=== PATIENT | male | born 1950 | race Caucasian/White ===

== ENCOUNTER 2016-11-09 18:16 | Emergency (ER) | payer MEDICARE, MEDICAID ==
[~2016-11-09] VITALS: Ht 170.2 cm; Wt 81.6 kg
[2016-11-09 18:33] VITALS: BP_SYST 125
[2016-11-09] MEDS ORDERED: PREDNISONE 20 MG TABLET PO ONE (19:45)
[2016-11-09] MEDS ORDERED: MORPHINE SULFATE 10 MG/ML VIAL IM ONE (19:45)
[2016-11-09] MEDS ORDERED: DIPHENHYDRAMINE INJ 50 MG/ML VIAL IM ONE (19:45)
[2016-11-09 20:45] VITALS: BP_SYST 125
== END 2016-11-09 20:45 | disposition home or self-care (01) ==
LOC: SED 18:16
DX: M54.17 Radiculopathy, lumbosacral region (principal); I10 Essential (primary) hypertension; F17.200 Nicotine dependence, unspecified, uncomplicated; J44.9 Chronic obstructive pulmonary disease, unspecified; E78.00 Pure hypercholesterolemia, unspecified; Z86.79 Personal history of other diseases of the circulatory system; Z71.6 Tobacco abuse counseling; Z98.890 Other specified postprocedural states
CPT/HCPCS: 96372; 99284; J1200; J2270; J7512

== ENCOUNTER 2016-12-21 09:31 | Emergency (ER) | payer MEDICARE, MEDICAID ==
[~2016-12-21] VITALS: Ht 157.5 cm; Wt 81.6 kg
[2016-12-21 09:35] VITALS: BP 113/46; PULSE 104; RESP 20; TEMP 98.2; O2SAT 98
--- NOTE | 2016-12-21 09:45 | NUR ---
Pt placed to ER bed 04 and to gown.
[2016-12-21] MEDS ORDERED: PHENAZOPYRIDINE HCL 100 MG TABLET PO ONE (10:30)
[2016-12-21] MEDS ORDERED: LEVOFLOXACIN 750 MG TABLET PO ONE (10:30)
[2016-12-21] MEDS ORDERED: MAGNESIUM CITRATE 300 ML ORAL SOLUTION PO ONE (11:30)
[2016-12-21 11:33] LABS: BILIRUBIN,URINE NEGATIVE (NEGATIVE); BLOOD, URINE 3+ (NEGATIVE); CLARITY/URINE SL CLOUDY (CLEAR); COLOR,URINE YELLOW (YELLOW); GLUCOSE,URINE NEGATIVE (NEGATIVE); KETONES,URINE NEGATIVE (NEGATIVE); LEUKOCYTE ESTERASE ,URINE NEGATIVE (NEGATIVE); NITRITE, URINE NEGATIVE (NEGATIVE); PROTEIN URINE NEGATIVE (NEGATIVE); UROBILINOGEN,URINE 0.2 (0.2-1.0)
[2016-12-21 11:47] LABS: BACTERIA,URINE FEW /HPF (None Seen); RBC,URINE 0-3 /HPF (0-3); WBC,URINE 0-3 /HPF (0-3)
--- NOTE | 2016-12-21 13:25 | NUR ---
Patient given written and verbal discharge instructions and verbalizes understanding. ER MD discussed with patient the results and treatment provided. Patient in stable condition. ID arm band removed. Rx of Cipro, Pyridium given. Patient educated on pain management and to follow up with PMD. Pain Scale 0/10. Opportunity for questions provided and answered. Translation provided by America MCFARLANE.
[2016-12-21 13:27] VITALS: BP 123/71; PULSE 87; RESP 16; TEMP 98; O2SAT 95
== END 2016-12-21 13:27 | disposition home or self-care (01) ==
LOC: SED 09:31
DX: R31.9 Hematuria, unspecified (principal); J44.9 Chronic obstructive pulmonary disease, unspecified; I10 Essential (primary) hypertension; E78.00 Pure hypercholesterolemia, unspecified; M54.30 Sciatica, unspecified side
CPT/HCPCS: 74000-TC; 81000-TC; 99284

== ENCOUNTER 2017-01-29 17:43 | Emergency (ER) | payer MEDICARE, MEDICAID ==
[~2017-01-29] VITALS: Ht 170.2 cm; Wt 84.8 kg
[2017-01-29 17:52] VITALS: BP_SYST 137
[2017-01-29] MEDS ORDERED: LIDOCAINE/EPI 1% 1:100000 20 ML VIAL INJ ONE (18:15)
[2017-01-29 18:57] VITALS: BP_SYST 135
== END 2017-01-29 18:57 | disposition home or self-care (01) ==
LOC: SED 17:43
DX: L02.01 Cutaneous abscess of face (principal); J44.9 Chronic obstructive pulmonary disease, unspecified; I10 Essential (primary) hypertension; E78.00 Pure hypercholesterolemia, unspecified
CPT/HCPCS: 87070-TC; 87075-TC; 99284

== ENCOUNTER 2017-10-08 18:24 | Emergency (ER) | payer MEDICARE, MEDICAID ==
[~2017-10-08] VITALS: Ht 154.9 cm; Wt 83.9 kg
[2017-10-08 18:33] VITALS: BP_SYST 130
[2017-10-08 19:10] LABS: BILIRUBIN,URINE NEGATIVE (NEGATIVE); BLOOD, URINE 3+ (NEGATIVE); CLARITY/URINE CLEAR (CLEAR); COLOR,URINE YELLOW (YELLOW); GLUCOSE,URINE NEGATIVE (NEGATIVE); KETONES,URINE NEGATIVE (NEGATIVE); LEUKOCYTE ESTERASE ,URINE NEGATIVE (NEGATIVE); NITRITE, URINE NEGATIVE (NEGATIVE); PH,URINE 5.5 (5.0-8.0); PROTEIN URINE NEGATIVE (NEGATIVE); UROBILINOGEN,URINE 0.2 (0.2-1.0)
[2017-10-08 19:15] LABS: EOSINOPHILS # (AUTO) 0.1 K/uL (0.0-0.4); LYMPHOCYTES # (AUTO) 2.4 K/uL (1.0-5.5); MONOCYTES # (AUTO) 0.8 K/uL (0.0-1.0)
[2017-10-08 19:19] LABS: BASOPHILS % (AUTO) 0.3 % (0.0-2.0); EOSINOPHILS % (AUTO) 1.3 % (0.0-4.0); HEMOGLOBIN 15.6 g/dL (14.0-18.0); LYMPHOCYTES % (AUTO) 29.2 % (20.5-51.5); MEAN CORPUSCULAR HEMOGLOBIN 32 pg (27-31); MEAN CORPUSCULAR HGB CONC 34 % (32-36); MEAN CORPUSCULAR VOLUME 93 fL (79.0-98.0); MONOCYTES % (AUTO) 9.8 % (1.7-9.3); NEUTROPHILS # (AUTO) 4.8 K/uL (1.8-7.7); NEUTROPHILS % (AUTO) 59.4 % (40.0-70.0); PLATELET COUNT (AUTO) 175 K/uL (130-430); RED BLOOD CELL COUNT(AUTO) 4.94 MIL/uL (4.2-6.2); RED CELL DISTRIBUTION WIDTH 12.5 % (9.0-15.0); WHITE BLOOD COUNT (AUTO) 8.1 K/uL (4.8-10.8)
[2017-10-08 19:25] LABS: CALCIUM 9.1 mg/dL (8.4-11.0); CREATININE 0.89 mg/dL (0.55-1.30); POTASSIUM 4.1 mmol/L (3.5-5.1)
[2017-10-08 19:31] LABS: ALBUMIN 3.9 g/dL (3.4-4.8); TOTAL BILIRUBIN 0.4 mg/dL (0.0-1.0)
[2017-10-08 19:39] LABS: BACTERIA,URINE FEW /HPF (None Seen); MUCUS,URINE None Seen /LPF (None Seen); WBC,URINE 0-3 /HPF (0-3)
[2017-10-08 20:22] VITALS: BP_SYST 138
== END 2017-10-08 20:22 | disposition home or self-care (01) ==
LOC: SED 18:24
DX: R31.9 Hematuria, unspecified (principal); J44.9 Chronic obstructive pulmonary disease, unspecified; I10 Essential (primary) hypertension; E78.00 Pure hypercholesterolemia, unspecified; M54.30 Sciatica, unspecified side; F17.210 Nicotine dependence, cigarettes, uncomplicated; Z95.1 Presence of aortocoronary bypass graft
CPT/HCPCS: 36415; 80053; 81000-TC; 85025; 99285

== ENCOUNTER 2017-11-30 18:46 | Emergency (ER) | payer MEDICARE, MEDICAID ==
[~2017-11-30] VITALS: Ht 170.2 cm; Wt 86.2 kg
[2017-11-30 19:04] VITALS: BP_SYST 135
[2017-11-30] MEDS ORDERED: LIDOCAINE 1% 10 MG/ML, 20 ML MDV INJ ONE (20:00)
[2017-11-30] MEDS ORDERED: CLINDAMYCIN PHOSPHATE 300 MG/2 ML VIAL IM ONE (20:15)
[2017-11-30] MEDS ORDERED: IBUPROFEN 800 MG TABLET PO ONE (20:15)
[2017-11-30 20:42] VITALS: BP_SYST 135
== END 2017-11-30 20:42 | disposition home or self-care (01) ==
LOC: SED 18:46
DX: L02.01 Cutaneous abscess of face (principal); J44.9 Chronic obstructive pulmonary disease, unspecified; I10 Essential (primary) hypertension; E78.00 Pure hypercholesterolemia, unspecified; M54.30 Sciatica, unspecified side; Z86.79 Personal history of other diseases of the circulatory system
CPT/HCPCS: 96372; 99283; J3490

== ENCOUNTER 2018-06-06 09:52 | Emergency (ER) | payer MEDICARE, MEDICAID ==
[~2018-06-06] VITALS: Ht 170.2 cm; Wt 86.2 kg
[2018-06-06 10:08] VITALS: BP_SYST 119
[2018-06-06 10:50] VITALS: BP_SYST 119
[2018-06-06] MEDS: LIDOCAINE 1% 10 MG/ML, 20 ML MDV INJ ONE (11:43)
== END 2018-06-06 10:50 | disposition home or self-care (01) ==
LOC: SED 09:52
DX: L72.8 Other follicular cysts of the skin and subcutaneous tissue (principal); J44.9 Chronic obstructive pulmonary disease, unspecified; E78.00 Pure hypercholesterolemia, unspecified; I10 Essential (primary) hypertension; Z86.79 Personal history of other diseases of the circulatory system
CPT/HCPCS: 10160; 99284; J2001; 99283

== ENCOUNTER 2018-12-11 09:46 | Emergency (ER) | payer MEDICARE, MEDICAID ==
[~2018-12-11] VITALS: Ht 167.6 cm; Wt 83.5 kg
[2018-12-11 09:55] VITALS: BP_SYST 123
--- NOTE | 2018-12-11 10:00 | NUR ---
Patient to ER bed 1 to gown for evaluation. Side rails up. Report given to Jake MCFARLANE.
--- NOTE | 2018-12-11 10:00 | NUR ---
Patient came into ED with a painful corn on fifth digit on R foot. Patient states he's had pain in his toe for approximately 1-2 months. Patient's skin is intact. Patient's pain does not radiate. Patient A&Ox4.
--- NOTE | 2018-12-11 10:05 | NUR ---
ER Dr. Jimenez at bedside examining patient.
[2018-12-11] MEDS ORDERED: METHYL SALICYLE/MENTHOL 28 GM OINT..GM. TP ONE (10:15)
[2018-12-11 10:20] VITALS: BP_SYST 123
--- NOTE | 2018-12-11 10:20 | NUR ---
Patient given written and verbal discharge instructions and verbalizes understanding. ER MD discussed with patient the results and treatment provided. Patient in stable condition. ID arm band removed. Rx of Salisol and Motrin given. Patient educated on pain management and to follow up with PMD. Pain Scale 6/10. Opportunity for questions provided and answered. Medication side effect fact sheet provided.
[2018-12-11] MEDS ORDERED: MINERAL OIL/PETROLATUM,WHITE 113 GM CREAM.GM. TP ONE (11:00)
== END 2018-12-11 10:00 | disposition home or self-care (01) ==
LOC: SED 09:46
DX: L84 Corns and callosities (principal); J44.9 Chronic obstructive pulmonary disease, unspecified; I10 Essential (primary) hypertension; E78.00 Pure hypercholesterolemia, unspecified; Z86.79 Personal history of other diseases of the circulatory system; Z95.1 Presence of aortocoronary bypass graft
CPT/HCPCS: 99282

== ENCOUNTER 2019-02-22 21:54 | Emergency (ER) | payer MEDICARE ==
[~2019-02-22] VITALS: Ht 157.5 cm; Wt 74.4 kg
[2019-02-22 22:03] VITALS: BP_SYST 139
[2019-02-22] MEDS ORDERED: IBUP-1969 PO (22:08)
[2019-02-22] MEDS ORDERED: NEU100 PO (22:08)
[2019-02-22] MEDS ORDERED: ASPI-1153 PO (22:08)
[2019-02-22] MEDS ORDERED: MONT10TA25 PO (22:08)
[2019-02-22] MEDS ORDERED: LIP20 PO (22:08)
[2019-02-22 23:38] LABS: BASOPHILS % (AUTO) 0.4 % (0.0-2.0); EOSINOPHILS # (AUTO) 0.1 K/uL (0.0-0.4); EOSINOPHILS % (AUTO) 1.4 % (0.0-4.0); HEMATOCRIT 37.6 % (36-54); LYMPHOCYTES # (AUTO) 1.7 K/uL (1.0-5.5); LYMPHOCYTES % (AUTO) 20.4 % (20.5-51.5); MEAN CORPUSCULAR HEMOGLOBIN 33 pg (27-31); MEAN CORPUSCULAR HGB CONC 35 % (32-36); MEAN CORPUSCULAR VOLUME 95 fL (79.0-98.0); MONOCYTES # (AUTO) 0.9 K/uL (0.0-1.0); MONOCYTES % (AUTO) 10.6 % (1.7-9.3); NEUTROPHILS # (AUTO) 5.4 K/uL (1.8-7.7); NEUTROPHILS % (AUTO) 67.2 % (40.0-70.0); PLATELET COUNT (AUTO) 218 K/uL (130-430); RED BLOOD CELL COUNT(AUTO) 3.97 MIL/uL (4.2-6.2); RED CELL DISTRIBUTION WIDTH 13.4 % (9.0-15.0); WHITE BLOOD COUNT (AUTO) 8.1 K/uL (4.8-10.8)
[2019-02-22 23:53] LABS: CALCIUM 8.5 mg/dL (8.4-11.0); CREATININE 0.99 mg/dL (0.55-1.30); POTASSIUM 4.1 mmol/L (3.5-5.1)
[2019-02-22 23:59] LABS: ALBUMIN 2.9 g/dL (3.4-4.8); TOTAL BILIRUBIN 0.5 mg/dL (0.0-1.0)
[2019-02-23 01:49] LABS: BILIRUBIN,URINE 1+ (NEGATIVE); BLOOD, URINE 3+ (NEGATIVE); CLARITY/URINE CLEAR (CLEAR); COLOR,URINE ORANGE (YELLOW); GLUCOSE,URINE NEGATIVE (NEGATIVE); KETONES,URINE NEGATIVE (NEGATIVE); LEUKOCYTE ESTERASE ,URINE 1+ (NEGATIVE); NITRITE, URINE NEGATIVE (NEGATIVE); PH,URINE 5.5 (5.0-8.0); PROTEIN URINE 1+ (NEGATIVE); UROBILINOGEN,URINE 0.2 (0.2-1.0)
[2019-02-23 01:56] LABS: BACTERIA,URINE FEW /HPF (None Seen); RBC,URINE 80-100 /HPF (0-3)
[2019-02-23] MEDS ORDERED: CIPROFLOXACIN HCL 500 MG TABLET PO ONE (02:15)
[2019-02-23 02:21] VITALS: BP_SYST 139
== END 2019-02-23 02:21 | disposition home or self-care (01) ==
LOC: SED 21:54
DX: N50.89 Other specified disorders of the male genital organs (principal); J44.9 Chronic obstructive pulmonary disease, unspecified; I10 Essential (primary) hypertension; Z90.89 Acquired absence of other organs; Z79.82 Long term (current) use of aspirin; Z79.899 Other long term (current) drug therapy
CPT/HCPCS: 36415; 76870-TC; 80053; 81000-TC; 85025; 87086; 99284

== ENCOUNTER 2019-08-05 22:32 | Inpatient (IN) | payer MEDICARE, MEDICAID ==
[~2019-08-05] VITALS: Ht 165.1 cm; Wt 77.8 kg
[~2019-08-05 22:32] MED LIST: ASPI-1153 PO; IBUP-1969 PO; LIP20 PO; MONT10TA25 PO; NEU100 PO
--- NOTE | 2019-08-05 22:35 | NUR ---
Pt placed to ER bed 07, to gown, to monitor technician. Non-provoked and non-radiating C/P onset at 20:30 this PM. Denies SOB, no nausea, non-diaphoretic.
[2019-08-05 22:44] VITALS: BP_SYST 139
[2019-08-05] MEDS ORDERED: ASPIRIN 81 MG TAB.CHEW PO ONE (23:00)
--- NOTE | 2019-08-05 23:00 | NUR ---
ER Dr. Fang at bedside examining patient.
--- NOTE | 2019-08-05 23:00 | NUR ---
#18 gauge angiocath placed to L antecubital. Use of asceptic technique. Opsite placed over site. Blood return noted. Blood for lab drawn from site. Flushed with 10 cc of normal saline. No evidence of infiltration noted. Patient tolerated well.
--- NOTE | 2019-08-05 23:06 | NUR ---
Medication was given, pt tolerated well. NO adverse reaction will continue to monitor.
[2019-08-05] MEDS ORDERED: NITROGLYCERIN LINGUAL 400 mCg/SPRAY SL PRN (23:15)
--- NOTE | 2019-08-05 23:18 | NUR ---
Patient AAO x 4 ambulates to ER bed 07 with complaints of 8/10 nonradiating chest pain since 2030 tonight. History of open heart surgery, CABG x 3, prostate ca, asthma, and hyperlipidemia. Denies cough and congestion. No adventitious lung sounds noted on auscultation. Even chest rise and fall with respirations. Will continue to monitor.
[2019-08-05 23:29] LABS: BASOPHILS % (AUTO) 0.3 % (0.0-2.0); EOSINOPHILS # (AUTO) 0.1 K/uL (0.0-0.4); HEMATOCRIT 37.6 % (36-54); HEMOGLOBIN 12.5 g/dL (14.0-18.0); LYMPHOCYTES # (AUTO) 1.4 K/uL (1.0-5.5); LYMPHOCYTES % (AUTO) 18.8 % (20.5-51.5); MEAN CORPUSCULAR HEMOGLOBIN 30 pg (27-31); MEAN CORPUSCULAR HGB CONC 33 % (32-36); MEAN CORPUSCULAR VOLUME 89 fL (79.0-98.0); MONOCYTES # (AUTO) 0.7 K/uL (0.0-1.0); MONOCYTES % (AUTO) 9.7 % (1.7-9.3); NEUTROPHILS # (AUTO) 5.1 K/uL (1.8-7.7); NEUTROPHILS % (AUTO) 70.2 % (40.0-70.0); PLATELET COUNT (AUTO) 225 K/uL (130-430); RED BLOOD CELL COUNT(AUTO) 4.21 MIL/uL (4.2-6.2); RED CELL DISTRIBUTION WIDTH 14.6 % (9.0-15.0); WHITE BLOOD COUNT (AUTO) 7.2 K/uL (4.8-10.8)
--- NOTE | 2019-08-05 23:37 | NUR ---
1st Nitro [place] was given. Pt tolerated well.
--- NOTE | 2019-08-05 23:41 | NUR ---
Note angel in EDM - 08/05/19 at 2343 by [email or web address] 3rd Nitro [place] was given, pt reported chest pain is now 10/18. Dr. Fang made aware.
--- NOTE | 2019-08-05 23:42 | NUR ---
2nd Nitro was given, pt tolerated well.
[2019-08-05 23:44] LABS: ANION GAP 5 (5-15); CALCIUM 8.5 mg/dL (8.4-11.0); CHLORIDE 107 mmol/L (98-107); CREATININE 0.91 mg/dL (0.55-1.30); GLUCOSE 153 mg/dL (70-99); INR 1.2 (0.80-1.20); POTASSIUM 3.5 mmol/L (3.5-5.1); PROTHROMBIN TIME 11.8 SECS (9.5-12.5); SODIUM SERUM 144 mmol/L (136-145); UREA NITROGEN, BLOOD 16 mg/dL (8-21)
[2019-08-05] MEDS ORDERED: NITROGLYCERIN LINGUAL 400 mCg/SPRAY ONE (23:47)
--- NOTE | 2019-08-05 23:47 | NUR ---
3rd Nitro [place] was given, pt reported chest pain is now 4/10. Dr. Fang made aware.
[2019-08-05 23:50] LABS: ALANINE AMINOTRANSFERASE 29 U/L (12-78); ALBUMIN 2.9 g/dL (3.4-4.8); ASPARTATE AMINOTRANSFERASE 18 U/L (10-37); TOTAL BILIRUBIN 0.3 mg/dL (0.0-1.0)
[2019-08-05] MEDS ORDERED: DOXA4TAB2 PO (23:55)
[2019-08-05] MEDS ORDERED: MONT10TA25 PO (23:55)
[2019-08-05] MEDS ORDERED: IBUP-1969 PO (23:55)
[2019-08-05] MEDS ORDERED: LIP20 PO (23:55)
[2019-08-05] MEDS ORDERED: FLUT1BLS3 INH (23:55)
[2019-08-05] MEDS ORDERED: ALBMDI INH (23:55)
[2019-08-05] MEDS ORDERED: ASA81 PO (23:55)
[2019-08-05] MEDS ORDERED: TICA90TA PO (23:55)
--- NOTE | 2019-08-05 23:55 | NUR ---
Troponin level 0.132. Dr. Fang notified. Repeat EKG don at bedside per MD verbal order.
--- NOTE | 2019-08-05 23:55 | NUR ---
Medication reconciliation completed with information provided by patient at bedside. Any prior medication reconciliation on file was reviewed and corrected.
[2019-08-06] MEDS ORDERED: NITROGLYCERIN 1 INCH (GM) OINT. TP ONE (00:15)
[2019-08-06] MEDS ORDERED: NS 250 ML IV ONE (00:15)
[2019-08-06] MEDS ORDERED: ENOXAPARIN SODIUM 80 MG/0.8 ML SYRINGE SUBCUT ONE (00:15)
--- NOTE | 2019-08-06 00:32 | NUR ---
Patient will be admitted to care of Dr. Enriquez. Admitted to [facility] unit. Will go to room 125 B. Belongings list completed. Complete and up to date summary report printed. SBAR report to be given at bedside with opportunity for questions.
--- NOTE | 2019-08-06 00:44 | NUR ---
Transfer to Telemetry via ACLS protocol. Licensed nurse present. IV present no signs or symptoms of infiltration.
--- NOTE | 2019-08-06 00:48 | NUR ---
ADMISSION: The patient, NSIH PENNINGTON, 69 y/o, M admitted by CHRISTOPHER UGALDE MD,with the diagnosis of NSTEMI to room 125 B , was given written information regarding hospital policies, unit procedures and contact persons.
--- NOTE | 2019-08-06 00:50 | NUR ---
NOTES PATIENT RESTING COMFORTABLY IN BED, VITALS STABLE, DENIES ANY CHEST PAIN AND DISCOMFORT AT THIS TIME. ADMISSION ASSESSMENT DONE AND DOCUMENTED. PLAN OF CARE DISCUSSED AND PATIENT VERBALIZED UNDERSTANDING. NEEDS ATTENDED TO. SAFETY AND FALL MEASURES IN PLACED. CALL LIGHT PLACED WITHIN REACH.
[2019-08-06 00:56] VITALS: BP_SYST 111
[2019-08-06] MEDS ORDERED: ALBUTEROL SULFATE 0.083% 2.5 MG/3 ML VIAL.NEB INH PRN (04:00)
[2019-08-06] MEDS ORDERED: ALBUTEROL MDI INHALATION 8 GM INH INH SCH (04:00)
[2019-08-06] MEDS ORDERED: MORPHINE 4 MG/ML INJ. SYRINGE IVP PRN (04:00)
[2019-08-06] MEDS ORDERED: MORPHINE 2 MG/ML INJ. SYRINGE IVP PRN (04:00)
[2019-08-06] MEDS ORDERED: ACETAMINOPHEN 325 MG TABLET PO PRN (04:00)
--- NOTE | 2019-08-06 04:12 | NUR ---
ROUNDS PATIENT ASLEEP, VITALS STABLE, RESPIRATIONS EVEN AND UNLABORED, NO SIGNS OF ANY PAIN AND DISCOMFORT NOTED. WILL CONTINUE TO MONITOR.
--- NOTE | 2019-08-06 04:47 | NUR ---
CONSULT: CONSULT CALLED FOR DR. CANTU I SPOKE WITH RYAN BRANDON REASON FOR CONSULT: NSTEMI REQUESTING CONSULT: DR. UGALDE [employer] PHONE NUMBER: [phone]
[2019-08-06 05:41] VITALS: BP_SYST 139
--- NOTE | 2019-08-06 06:52 | NUR ---
DR. DELORES ESTRELLA HERE AND SAW PATIENT. PATIENT STABLE, NO COMPLAINTS AT THIS TIME, DENIES ANY CHEST PAIN AND DISCOMFORT. ALL NEEDS ATTENDED TO. SAFETY MEASURES MAINTAINED. CALL LIGHT PLACED WITHIN REACH.
[2019-08-06 07:56] VITALS: BP_SYST 112
--- NOTE | 2019-08-06 07:57 | NUR ---
Initial notes- In bed, wants to sleep. denies any chest pain or shortness of breath. Update plan of care. enc. to call for help as needed. Call light in reach. No distress noted. will monitor.
[2019-08-06] MEDS ORDERED: BUDESONIDE 0.5 MG/2 ML AMPUL.NEB INH SCH (08:00)
[2019-08-06] MEDS ORDERED: ALBUTEROL SULFATE 0.083% 2.5 MG/3 ML VIAL.NEB INH SCH (08:00)
[2019-08-06] MEDS ORDERED: DOXAZOSIN MESYLATE 2 MG TABLET PO SCH (09:00)
[2019-08-06] MEDS ORDERED: ASPIRIN 81 MG TAB.CHEW PO SCH (09:00)
[2019-08-06] MEDS ORDERED: CARVEDILOL 3.125 MG TABLET (COREG) PO ONE (09:15)
--- NOTE | 2019-08-06 09:26 | NUR ---
MD ROUNDS SEEN BY DR. CANTU AT BEDSIDE.
[2019-08-06 09:49] LABS: BASOPHILS % (AUTO) 0.3 % (0.0-2.0); EOSINOPHILS # (AUTO) 0.1 K/uL (0.0-0.4); EOSINOPHILS % (AUTO) 1.6 % (0.0-4.0); HEMATOCRIT 36.3 % (36-54); HEMOGLOBIN 11.7 g/dL (14.0-18.0); LYMPHOCYTES # (AUTO) 1.1 K/uL (1.0-5.5); LYMPHOCYTES % (AUTO) 18.1 % (20.5-51.5); MEAN CORPUSCULAR HEMOGLOBIN 29 pg (27-31); MEAN CORPUSCULAR HGB CONC 32 % (32-36); MEAN CORPUSCULAR VOLUME 91 fL (79.0-98.0); MONOCYTES # (AUTO) 0.7 K/uL (0.0-1.0); MONOCYTES % (AUTO) 11.9 % (1.7-9.3); NEUTROPHILS # (AUTO) 4.2 K/uL (1.8-7.7); NEUTROPHILS % (AUTO) 68.1 % (40.0-70.0); PLATELET COUNT (AUTO) 204 K/uL (130-430); RED BLOOD CELL COUNT(AUTO) 4.01 MIL/uL (4.2-6.2); RED CELL DISTRIBUTION WIDTH 14.6 % (9.0-15.0); WHITE BLOOD COUNT (AUTO) 6.1 K/uL (4.8-10.8)
[2019-08-06 10:06] LABS: ALANINE AMINOTRANSFERASE 27 U/L (12-78); ALBUMIN 2.5 g/dL (3.4-4.8); ANION GAP 5 (5-15); ASPARTATE AMINOTRANSFERASE 44 U/L (10-37); CALCIUM 8.3 mg/dL (8.4-11.0); CHLORIDE 109 mmol/L (98-107); GLUCOSE 115 mg/dL (70-99); POTASSIUM 3.9 mmol/L (3.5-5.1); SODIUM SERUM 146 mmol/L (136-145); TOTAL BILIRUBIN 0.3 mg/dL (0.0-1.0); UREA NITROGEN, BLOOD 15 mg/dL (8-21)
[2019-08-06] MEDS: TICAGRELOR 90 MG TABLET PO SCH ×2 (10:07→20:25)
--- NOTE | 2019-08-06 10:20 | NUR ---
Paged Dr. Clark Re: troponin results.
[2019-08-06 10:27] LABS: CHOLESTEROL 129 mg/dL (<200); TRIGLYCERIDES 47 mg/dL (30-150)
[2019-08-06 10:28] LABS: HDL CHOLESTEROL 39 mg/dL (>45); LDL CHOLESTEROL 72 mg/dL (<100)
--- NOTE | 2019-08-06 11:00 | NUR ---
Spoke to Dr. Clark and made aware of troponin level. no new orders.
[2019-08-06] MEDS: ENOXAPARIN SODIUM 80 MG/0.8 ML SYRINGE SQ SCH ×2 (11:32→20:26)
[2019-08-06 12:20] VITALS: BP_SYST 101
--- NOTE | 2019-08-06 12:35 | NUR ---
Notes- eating lunch. denies any chest pain or shortness . No acute distress noted. SR on the monitor
--- NOTE | 2019-08-06 13:43 | NUR ---
Cardiac consult called: for Dr. Liu, regarding acute [place], ordered by Dr. Clark, spoke with Swati.
--- NOTE | 2019-08-06 14:53 | NUR ---
notes- Resting at this time. No complaints.
--- NOTE | 2019-08-06 15:00 | NUR ---
Notes- Dr. Liu spoke to Zulma, Charge nurse for patient to be transfer to [facility] in the morning for cardiac cath.
--- NOTE | 2019-08-06 15:05 | NUR ---
Spoke earlier with Peggy, HCP MARIYA, regarding need to have patient at [facility] by 0800 tomorrow morning for cath procedure. She will work on making arrangements.
--- NOTE | 2019-08-06 15:48 | NUR ---
Received call from KYLEIGH Woods CM, regarding transfer. [facility] is aware of patient, but does not have bed yet. The charge nurse there will make bed assignment after 1929 ton. [facility] is on will call.
[2019-08-06 16:06] VITALS: BP_SYST 110
--- NOTE | 2019-08-06 17:20 | NUR ---
Spoke to patient's daughter Maegan, and made aware of patient's transfer to [facility] in the morning. Per family, she will come tonight.
[2019-08-06] MEDS ORDERED: MONTELUKAST 10 MG TABLET PO SCH (18:00)
--- NOTE | 2019-08-06 18:20 | NUR ---
Notes- In bed, eating dinner. Denies any chest pain or shortness of breath. No acute distress noted. Aware of transfer to [facility] in the morning. advise not to eat or drink after midnight.
--- NOTE | 2019-08-06 19:30 | NUR ---
OPENING NOTE RECEIVED CARE OF PT AND SBAR REPORT. PT IS AAOX4, RESTING IN BED, DENIES CHEST PAIN AT THIS TIME. BREATHING IS UNLABORED TO ROOM AIR. NO S/S OF ACUTE DISTRESS. POC DISCUSSED WITH PT, PT VERBALIZED UNDERSTANDING. SAFETY PRECAUTIONS ARE IN PLACE: BED IS LOCKED IN LOWEST POSITION, SIDE RAILS UP X2, CALL LIGHT IS WITH PT, BED ALARM ON. WILL MONITOR.
[2019-08-06 20:00] VITALS: BP_SYST 109
--- NOTE | 2019-08-06 20:26 | NUR ---
MEDICATION PASS SCHEDULED MEDICATIONS ADMINISTERED ORDERED. MEDICATION ACTIONS AND POTENTIAL SIDE EFFECTS DISCUSSED, PT VERBALIZED UNDERSTANDING. SAFETY PRECAUTIONS REMAIN IN PLACE. WILL MONITOR.
[2019-08-06] MEDS ORDERED: ATORVASTATIN 20 MG TABLET PO SCH (21:00)
[2019-08-06] MEDS ORDERED: CARVEDILOL 3.125 MG TABLET (COREG) PO SCH (21:00)
--- NOTE | 2019-08-06 22:30 | NUR ---
RESTING PT RESTING IN BED, NO S/S OF ACUTE DISTRESS, BREATHING IS UNLABORED TO ROOM AIR. NO SIGN OF PAIN OR DISCOMFORT. SAFETY PRECAUTIONS MAINTAINED. WILL CONTINUE TO MONITOR.
--- NOTE | 2019-08-07 | NUR ---
NPO FOR PROCEDURE TODAY. PT AWARE OF NPO STATUS.
[2019-08-07 00:27] VITALS: BP_SYST 106
--- NOTE | 2019-08-07 02:15 | NUR ---
RN ROUNDS: PT RESTING IN BED WITH EYES CLOSED. VISIBLE SYMMETRICAL RISE AND FALL OF CHEST TO ROOM AIR. NO SIGN OF PAIN OR DISCOMFORT. PT APPEARS TO BE COMFORTABLE AT THIS TIME. SAFETY PRECAUTIONS MAINTAINED. WILL MONITOR.
[2019-08-07 03:23] VITALS: BP_SYST 128
--- NOTE | 2019-08-07 04:19 | NUR ---
SPOKE TO WARP TRUCKER AT [facility] WARP TRUCKER, REDDY GOMEZ, STATED THAT PT WILL GO TO ROOM 268B. REDDY GOMEZ STATED PT DOES NOT HAVE A NURSE YET, THAT HIS NURSE WILL BE DAYSHIFT. SHE STATED PT SHOULD NOT ARRIVE MUCH EARLIER THAN 0800 THERE WILL NOT BE A NURSE AVAILABLE UNTIL THEN.
--- NOTE | 2019-08-07 04:24 | NUR ---
Called [facility], s/w Jenn. ETA [phone]
[2019-08-07 06:35] LABS: BASOPHILS % (AUTO) 0.3 % (0.0-2.0); EOSINOPHILS # (AUTO) 0.1 K/uL (0.0-0.4); EOSINOPHILS % (AUTO) 1.2 % (0.0-4.0); HEMATOCRIT 35.8 % (36-54); HEMOGLOBIN 11.8 g/dL (14.0-18.0); LYMPHOCYTES # (AUTO) 1.6 K/uL (1.0-5.5); LYMPHOCYTES % (AUTO) 21.7 % (20.5-51.5); MEAN CORPUSCULAR HEMOGLOBIN 29 pg (27-31); MEAN CORPUSCULAR HGB CONC 33 % (32-36); MEAN CORPUSCULAR VOLUME 89 fL (79.0-98.0); MONOCYTES # (AUTO) 0.9 K/uL (0.0-1.0); MONOCYTES % (AUTO) 11.9 % (1.7-9.3); NEUTROPHILS # (AUTO) 4.8 K/uL (1.8-7.7); NEUTROPHILS % (AUTO) 64.9 % (40.0-70.0); PLATELET COUNT (AUTO) 200 K/uL (130-430); RED BLOOD CELL COUNT(AUTO) 4.01 MIL/uL (4.2-6.2); RED CELL DISTRIBUTION WIDTH 14.6 % (9.0-15.0); WHITE BLOOD COUNT (AUTO) 7.4 K/uL (4.8-10.8)
--- NOTE | 2019-08-07 06:49 | NUR ---
CLOSING NOTE PT IS AAOX4, RESTING IN BED, DENIED CHEST PAIN THROUGHOUT SHIFT. BREATHING IS UNLABORED TO ROOM AIR. NO S/S OF ACUTE DISTRESS. POC DISCUSSED WITH PT, PT VERBALIZED UNDERSTANDING. PSAFETY PRECAUTIONS ARE IN PLACE: BED IS LOCKED IN LOWEST POSITION, SIDE RAILS UP X2, CALL LIGHT IS WITH PT, BED ALARM ON. WILL ENDORSE TO DAY SHIFT RN.
[2019-08-07 07:23] LABS: POTASSIUM 3.5 mmol/L (3.5-5.1); SODIUM SERUM 137 mmol/L (136-145)
[2019-08-07 07:24] LABS: ALANINE AMINOTRANSFERASE 27 U/L (12-78); ANION GAP 6 (5-15); ASPARTATE AMINOTRANSFERASE 47 U/L (10-37); CALCIUM 8.5 mg/dL (8.4-11.0); CHLORIDE 103 mmol/L (98-107); CREATININE 0.79 mg/dL (0.55-1.30); GLUCOSE 90 mg/dL (70-99); TOTAL BILIRUBIN 0.4 mg/dL (0.0-1.0); UREA NITROGEN, BLOOD 11 mg/dL (8-21)
[2019-08-07 07:25] LABS: ALBUMIN 2.5 g/dL (3.4-4.8); CHOLESTEROL 133 mg/dL (<200); HDL CHOLESTEROL 35 mg/dL (>45); LDL CHOLESTEROL 82 mg/dL (<100); THYROID STIMULATING HORMONE 1.37 uIu/mL (0.34-4.82); TRIGLYCERIDES 60 mg/dL (30-150)
--- NOTE | 2019-08-07 07:25 | NUR ---
Note [facility] EMT on the floor to pick pt to [facility]. Report given to EMT by Leah MCFARLANE (NOC)
--- NOTE | 2019-08-07 07:55 | NUR ---
Note Report given to Karen RN at [facility] - pt will go to room 268B
== END 2019-08-07 07:40 | disposition short-term general hospital (02) | DRG 280 ==
LOC: SED 22:32 → STU 08-06 00:22
PROVIDERS: ADMIT Internal Medicine Hospice and Palliative Medicine; ATTEND Internal Medicine Hospice and Palliative Medicine
DX: I21.A1 Myocardial infarction type 2 (principal); E43 Unspecified severe protein-calorie malnutrition; I50.41 Acute combined systolic (congestive) and diastolic (congestive) heart failure; I11.0 Hypertensive heart disease with heart failure; I25.5 Ischemic cardiomyopathy; E78.5 Hyperlipidemia, unspecified; I25.10 Atherosclerotic heart disease of native coronary artery without angina pectoris; J44.9 Chronic obstructive pulmonary disease, unspecified; J45.909 Unspecified asthma, uncomplicated; E78.00 Pure hypercholesterolemia, unspecified; N40.0 Benign prostatic hyperplasia without lower urinary tract symptoms; F17.210 Nicotine dependence, cigarettes, uncomplicated; Z90.81 Acquired absence of spleen; Z82.49 Family history of ischemic heart disease and other diseases of the circulatory system; Z95.1 Presence of aortocoronary bypass graft; Z79.82 Long term (current) use of aspirin; Z79.899 Other long term (current) drug therapy
CPT/HCPCS: 36415; 71045; 80053; 80061; 83880; 84443-TC; 84484; 85025; 85610-TC; 85730-TC; 93005; 93306; 96360; 96372; 99285; G0378; J1650